=== PATIENT | female | born 1975 | race Caucasian/White ===

== ENCOUNTER 2020-11-07 21:01 | Emergency (ER) | payer OTHER, SELFPAY ==
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
[2020-11-07 21:12] VITALS: BP 137/79; PULSE 83; RESP 18; TEMP 37; O2SAT 99; BMI 31.1
[2020-11-07] MEDS: ONDANSETRON 4 MG ODT PREPACK 1 BOTTLE MISC (22:27)
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
== END 2020-11-07 22:27 | disposition home or self-care (01) ==
PROVIDERS: Emergency Provider Emergency Medicine; Family Provider Physician Assistant; PCP Physician Assistant
DX: S06.0X1A Concussion with loss of consciousness of 30 minutes or less, initial encounter (principal); M62.838 Other muscle spasm; R11.0 Nausea; Y04.2XXA Assault by strike against or bumped into by another person, initial encounter
CPT/HCPCS: 70450; 72125; 99283; 99284

== ENCOUNTER → 2024-04-10 16:41 | Outpatient (CLI) | payer OTHER, SELFPAY ==
--- NOTE | 2024-04-10 16:42 | DI.US.S_ITS ---
PROCEDURE: US PELVIC COMPLETE INDICATIONS: Heavy bleeding possible fibroids TECHNIQUE: Real-time scanning was performed of the pelvic organs, with image documentation. Additional endovaginal scanning was necessary due to incomplete visualization of the adnexal and endometrial structures by transabdominal scanning. COMPARISON: None. FINDINGS: Uterus: Uterus is anteverted and enlarged measuring 14.3 x 8.4 cm. The myometrium is heterogeneous secondary to several myometrial masses ranging in size from 2.8-3.1 cm. The endometrium measures 18.3 mm combined thickness. No increased myometrial or endometrial vascularity. Ovaries: The right ovary measures 3.8 x 3.9 x 2.2 cm, with a calculated ovarian volume of 16.5 cc. The left ovary measures 2.4 x 1.9 x 5.3 cm, with a calculated ovarian volume of 12.6 cc. The ovaries have a normal sonographic appearance. The left ovary is only seen by transabdominal imaging due to anterior position. Less than 12 follicles can be seen in each ovary. No adnexal masses are seen. Other: No pathologic free abdominal or pelvic fluid. IMPRESSION: Enlarged, heterogeneous, fibroid uterus. Endometrium at the upper limits of normal thickness. More detailed evaluation on fibroids and endometrium could be performed with gynecologic pelvic MRI if indicated. We strive to produce accurate, complete, and clear reports of imaging services. To assist us in improving patient care, this report was composed using standard report templates and voice recognition software. Therefore, it may contain abnormal punctuation, insertions and/or omissions. Occasional wrong-word or sound-alike substitutions may occur. Though we review the report and make efforts to correct it, we do recommend that the report be read carefully in proper context to recognize any text inaccuracies. Dictated by: Buffy Tillman M.D. on 04/10/2024 at 21:50 Approved by: Buffy Tillman M.D. on 04/10/2024 at 21:55
== END ==
PROVIDERS: Family Provider Physician Assistant; PCP Physician Assistant; Referring Provider Student in an Organized Health Care Education/Training Program; Visit Provider Student in an Organized Health Care Education/Training Program
DX: N94.6 Dysmenorrhea, unspecified (principal); N85.2 Hypertrophy of uterus; N85.9 Noninflammatory disorder of uterus, unspecified
CPT/HCPCS: 76856

== ENCOUNTER → 2024-05-25 14:57 | Outpatient (CLI) | payer OTHER, SELFPAY ==
[2024-05-25 15:10] LABS: Add Manual Diff / Slide Review NO; Basophils Absolute Auto 100 /uL (0-100); Basophils Percent Auto 0.9 % (0-2); Eosinophils Absolute Auto 400 /uL (0-450); Eosinophils Percent Auto 5.1 % (2-4); Hematocrit 42.4 % (36-46); Hemoglobin 14.4 g/dL (12.0-16.0); Lymphocytes Absolute Auto 2300 /uL (1100-4500); Mean Corpuscular HGB Conc 33.9 % (30-36); Mean Corpuscular Hemoglobin 28.9 PG (26-34); Mean Corpuscular Volume 85.1 fL (80-100); Monocytes Absolute Auto 900 /uL (0-900); Monocytes Percent Auto 10.6 % (3-14); Neutrophils Absolute Auto 5100 /uL (1500-7000); Neutrophils Percent Auto 57.4 % (50-75); Platelet Count 419 X10^3/uL (150-400); Red Blood Cell Count 4.99 X10^6/uL (4.0-5.2); Red Cell Distribution Width 19.6 % (11.6-14.8); White Blood Cell Count 8.8 X10^3/uL (4.5-11.0)
== END ==
PROVIDERS: Family Provider Physician Assistant; PCP Physician Assistant; Referring Provider Student in an Organized Health Care Education/Training Program; Visit Provider Student in an Organized Health Care Education/Training Program
DX: N92.0 Excessive and frequent menstruation with regular cycle (principal); N93.9 Abnormal uterine and vaginal bleeding, unspecified; D25.9 Leiomyoma of uterus, unspecified
CPT/HCPCS: 36415; 85025

== ENCOUNTER 2024-06-04 11:56 | Day surgery (SDC) | payer OTHER, SELFPAY ==
[2024-05-27 10:51] VITALS: BMI 32.4
[2024-06-04] VITALS (11 sets, daily range): BP systolic 117–169; BP diastolic 72–95; PULSE 64–74; RESP 14–20; TEMP 36.2–36.9; O2SAT 94–100; BMI 32.7; BMI 33.3
--- NOTE | 2024-06-04 | PATH_ITS ---
[facility] Accession Number: [id number] No. of containers..01 Tissue . 01 Material submitted: . uterus - UTERUS, CERVIX, BILATERAL FALLOPIAN TUBES . 01 Diagnosis: UTERUS, CERVIX, BILATERAL FALLOPIAN TUBES, HYSTERECTOMY AND BILATERAL SALPINGECTOMY: Uterus with secretory endometrium and leiomyomas (up to 2.4 cm). Histologically unremarakable cervix. Bilateral fimbriated fallopian tubes with benign paratubal cysts, otherwise unremarkable. MRV 06/08/2024 1351 Local . 01 Electronically signed: . Karolyn Montanez DO, Pathologist NPI- [id number] . 01 Gross description: . Received in formalin with two identifiers and uterus, cervix, bilateral fallopian tubes, is a fragmented uterus (428 grams, 15.2 x 11.7 x 7.9 cm in aggregate), with detached cervix (3.4 x 3.1 cm), and two detached, unoriented, fimbriated fallopian tubes (6.2 x 0.6 cm and 6.5 x 0.5 cm), with no additional adnexa. . The ectocervix is pink-restrepo and wrinkled with a patulous os 1.3 cm in diameter. The cervical margin is inked blue. The serosa is restrepo and smooth with no hemorrhage or adhesion identified. The segment of endocervical canal measures 3.5 cm length and has restrepo herringbone mucosa. The endometrium is violaceous and fragile and averages 0.3 cm thick. The myometrium is restrepo and diffusely trabecular with multiple well-circumscribed white whorled nodules ranging from 0.2 to 2.4 cm in greatest dimension with no hemorrhage or necrosis identified and are located intramurally. . Both tubes have violaceous, smooth serosa with cystic structures up to 0.8 cm in greatest dimension filled with cloudy serous fluid. The lumen are stellate and unremarkable. . Inspector Experimental Assembly sections are submitted as follows: A1-A2: Cervix. A3: Endometrium. A4-A5: Nodules. A6: Longer fallopian tube to include one-half of bisected fimbriae and cross-sections. A7: [place] fallopian tube to include one-half of bisected fimbriae and cross-sections. ([id number]) /TISHA 06/05/2024 2221 Local . 01 Pathologist provided ICD-10: D25.9 . 01 CPT . 235066 Specimen Comment: A courtesy copy of this report has been sent to [facility] Performed at: [address] [address], [place], [place] [id number] MD Amos Dunham MD Phone: [phone]
[2024-06-04] MEDS: ACETAMINOPHEN IV 1,000 MG/100 ML VIAL 400 MG IV (12:30)
[2024-06-04] MEDS: SCOPOLAMINE 1 PATCH TOP (12:30)
[2024-06-04] MEDS: LACTATED RINGERS 1,000 ML 42 ML IV (12:31)
--- NOTE | 2024-06-04 12:31 | PM.PREOP ---
Pre-operative Note Interval Note History & Physical reviewed/Exam performed by Physician: Yes Changes to H&P: No H&P completed within 30 days and has changed as indicated here:: see H&P from 05/25/24; discussed goal of total laparoscopic hysterectomy, with laparoscopic supracervical hysterectomy as next approach rather than MEG
[2024-06-04] MEDS: CEFAZOLIN 2 GM/100 ML PREMIX 100 ML IV (13:25)
--- NOTE | 2024-06-04 13:46 | SUR.OPER ---
Lithotomy on padded OR bed. Killdeer Pad Positioner under torso. Head on pillow, arms padded and tucked at sides. Legs secured in padded yellow fins stirrups.
[2024-06-04] MEDS: BUPIVACAINE 0.25% (PF) VIAL 30 ML INJ (14:19)
[2024-06-04] MEDS: LACTATED RINGERS 1,000 ML 21 ML IV (15:00)
--- NOTE | 2024-06-04 16:23 | P.OP_ITS ---
Operative Date/Time/Diagnoses Date of procedure: 06/04/24 Time of procedure: 13:30 Pre-op diagnosis: 1. Abnormal uterine bleeding 2. Uterine leiomyomata 3. Chronic blood loss iron-deficiency anemia Post-op diagnosis: same Procedure & Clinicians Procedure: Total laparoscopic hysterectomy Bilateral salpingectomy Cystoscopy Same procedure as scheduled: Yes Indications: 49yo F with AUB-L and anemia, desiring definitive management, thus she was counseled and consented for the above procedures. Surgeon: Nivia Cordoba Cellophane Casting Machine Repairer: Radha Rosenberg Click Yes if Unassisted: No Anesthesia Type: General Operative Notes Findings: Enlarged multi-fibroid uterus. Normal appearing bilateral fallopian tubes and bilateral ovaries. Normal appearing liver edge and gallbladder. Urinary bladder with small crystals noted, but otherwise normal appearing bladder mucosa with brisk efflux of urine from bilateral ureteral orifices. Specimen(s): other (uterus, cervix, bilateral fallopian tubes) Applied: catheter Estimated Blood Loss (mL): 350 Blood products transfused: none Procedure in detail: The risks, benefits, indications and alternatives of the procedure were reviewed with the patient and informed consent was obtained. The pt was taken to the operating room where general anesthesia was obtained without difficulty. The pt was then placed in the low lithotomy position using Fili Stirrups and arms were tucked with padding. Sequential compression devices were placed bilaterally for VTE prophylaxis. She was then prepped and draped in the sterile fashion and a Bear catheter was placed. She received 2g Ancef for surgical prophylaxis. A V-care uterine manipulator was placed through the cervix into the uterus for uterine manipulation. Attention was then turned to the patient?s abdomen were a 5mm skin incision was made in the inferior aspect of the umbilicus after injecting 0.25% Marcaine. A 5mm trocar and sleeve were then carefully introduced into the peritoneal cavity under direct visualization at a 90-degree angle while tenting up the abdominal wall. Intra-peritoneal placement was confirmed under direct visualization with the laparoscope with entry pressure <5 mmHg. A pneumoperitoneum was obtained with several liters of CO2 gas, maximum pressure of 15 mmHg. Upon entry into the peritoneal cavity, structures immediately below the incision were inspected and found to be free of injury. A survey of the patient's abdomen and pelvis was notable for the above findings. Three additional 5mm port sites, one in the right lateral side and two in the left lateral side, were placed under direct laparoscopic guidance. The Powerseal device was then used to separate the left fallopian tube from the mesosalpinx, then transected at the cornua and removed via a lateral port. The utero-ovarian and round ligaments were then clamped, cut, and ligated. The anterior broad ligament was then incised along the bladder reflection and the bladder was dissected off the lower uterine segment until endopelvic fascia was visualized. The uterine artery was then identified, skeletonized, and ligated on the left. The uterosacral ligament and cardinal ligament were transected on the left. Attention was then directed to the right side, where the same procedure was done to clamp, cut, and ligate the right fallopian tube and right side of the uterus. The anterior colpotomy was then made using the Bovie L-hook and continued circumferentially inferior to the cervix using the colpotomy ring as a guide. During this process, there was brisk bleeding from the right uterine artery and branches, which were ligated with the Powerseal. The entire cervix and uterus was then successfully amputated. Attention was then directed vaginally, where the uterus was morcellated in the vagina, with care to keep the morcellated specimens from entering or contacting the abdominal cavity. The uterus was then delivered through the vagina. The 0 Stratafix suture was then introduced into the abdominal cavity via the vagina. Attention was then re-directed back to the abdomen, where the vaginal cuff was then closed laparoscopically with the barbed suture in a running fashion. The suture needle was removed via the lateral port under direct visualization. The pelvis was then irrigated, and excellent hemostasis was noted after use of PerClot hemostatic powder on the pedicles and vaginal cuff. The pneumoperitoneum was then released. The bear catheter was then removed, and the cystoscope was then primed and advanced through the urethra and into the bladder. Both ureteral orifices were identified and bilateral efflux of urine was visualized. A survey of the bladder did not show defects or visible suture. The cystoscope was then removed and the bladder was drained. The bear catheter was replaced. Attention was then returned to the abdomen, where the remaining ports were removed. The skin incisions were then reapproximated using 4-0 monocryl suture in a subcuticular fashion and covered with Dermabond. At the completion of the case the sponge and needle counts were correct x 2, and all instruments were confirmed to be removed from the vagina. The patient was taken to the PACU in stable condition. Complications: none Post-operative Condition: stable Disposition: PACU Plan for aftercare: Plan for overnight stay with discharge home in the morning.
[2024-06-04] MEDS: OXYCODONE IR 5 MG TABLET PO ×3 (16:39→19:45)
[2024-06-04] MEDS: ONDANSETRON 4 MG/2 ML INJ IV (16:39)
[2024-06-04] MEDS: HYDROMORPHONE 1 MG INJ IV ×2 (16:39→20:50)
[2024-06-04] MEDS: ACETAMINOPHEN 325 MG TABLET 650 MG PO (17:37)
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
[2024-06-04] MEDS: DOCUSATE 100 MG CAPSULE 200 MG PO (20:07)
[2024-06-04] MEDS: KETOROLAC 30 MG/ML VIAL IV (22:24)
[2024-06-05] VITALS: BP 116/63; PULSE 84; RESP 18; TEMP 36.6; O2SAT 92
[2024-06-05] MEDS: ACETAMINOPHEN 325 MG TABLET 650 MG PO ×3 (00:25→10:58)
[2024-06-05] MEDS: OXYCODONE IR 5 MG TABLET PO ×3 (00:26→07:26)
[2024-06-05] MEDS: KETOROLAC 30 MG/ML VIAL IV ×2 (04:40→10:10)
[2024-06-05 08:00] VITALS: BP 112/59; PULSE 77; RESP 14; TEMP 37.1; O2SAT 94
[2024-06-05] MEDS: DULOXETINE 30 MG CAPSULE 60 MG PO (08:11)
[2024-06-05] MEDS: DOCUSATE 100 MG CAPSULE 200 MG PO (08:11)
[2024-06-05] MEDS: hydroCHLOROthiazide 25 MG TABLET 12.5 MG PO (08:11)
[2024-06-05] MEDS: OXYCODONE IR 5 MG TABLET 10 MG PO (10:59)
--- NOTE | 2024-06-05 11:08 | PC.NURSE ---
Patients bear was taken out this am. Patient just voided around 125cc of yellow urine in the toilet, she is ok to discharge home now. Oxycodone 10mg and tylenol given to patient. Her is here to take her home. 4 lapsite incisions all cdi with durmobond. IV being taken out now.
== END 2024-06-05 11:43 | disposition home or self-care (01) ==
LOC: OR 11:58 → AC 12:04
PROVIDERS: Family Provider Physician Assistant; PCP Physician Assistant; Referring Provider Student in an Organized Health Care Education/Training Program; Visit Provider Student in an Organized Health Care Education/Training Program
PROC: 0UT94ZZ Resection of Uterus, Percutaneous Endoscopic Approach (ICD-10-PCS; CPT 58573; principal; 2024-06-04 13:15)
DX: N93.9 Abnormal uterine and vaginal bleeding, unspecified (principal); D50.8 Other iron deficiency anemias; D25.9 Leiomyoma of uterus, unspecified; N83.8 Other noninflammatory disorders of ovary, fallopian tube and broad ligament
CPT/HCPCS: 58573; 58571; J0131; J0690; J1100; J1171; J1885; J2250; J2405; J2704; J3010

== ENCOUNTER 2024-06-15 22:39 | Emergency (ER) | payer OTHER, SELFPAY ==
[2024-06-04 18:40] VITALS: BMI 32.7
[2024-06-15 22:46] VITALS: BP 135/66; PULSE 82; RESP 20; TEMP 36.8; O2SAT 98; BMI 32.0
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
[2024-06-15 23:46] LABS: Alanine Aminotransferase 75 IU/L (<35); Albumin 4.5 g/dL (3.5-5.0); Albumin Globulin Ratio 1.4 (1.0-2.8); Alkaline Phosphatase 188 U/L (38-126); Aspartate Aminotransferase 64 IU/L (14-36); BUN Creatinine Ratio 23.1 (6-22); Bilirubin Total 0.4 mg/dL (0.2-1.3); Blood Urea Nitrogen 15 mg/dL (7-17); Calcium 9.6 mg/dL (8.4-10.2); Carbon Dioxide 23 mmol/L (22-32); Chloride 106 mmol/L (98-107); Estimated Glomerular Filt Rate > 60 mL/min (>60); Globulin 3.3 g/dL (1.7-4.1); Glucose 101 mg/dL (70-100); HEMOLYSIS 27 (0-50); Lipase 176 U/L (23-300); Potassium 3.8 mmol/L (3.4-5.1); Sodium 138 mmol/L (137-145); Total Protein 7.8 g/dL (6.3-8.2)
[2024-06-15 23:52] LABS: Add Manual Diff / Slide Review NO; Basophils Absolute Auto 200 /uL (0-100); Basophils Percent Auto 1.3 % (0-2); Eosinophils Absolute Auto 700 /uL (0-450); Eosinophils Percent Auto 5.3 % (2-4); Hematocrit 41.3 % (36-46); Hemoglobin 14.3 g/dL (12.0-16.0); Lymphocytes Absolute Auto 3100 /uL (1100-4500); Lymphocytes Percent Auto 22.5 % (25-40); Mean Corpuscular HGB Conc 34.6 % (30-36); Mean Corpuscular Hemoglobin 29.9 PG (26-34); Mean Corpuscular Volume 86.5 fL (80-100); Monocytes Absolute Auto 1100 /uL (0-900); Monocytes Percent Auto 7.7 % (3-14); Neutrophils Absolute Auto 8700 /uL (1500-7000); Neutrophils Percent Auto 63.2 % (50-75); Platelet Count 525 X10^3/uL (150-400); Red Blood Cell Count 4.77 X10^6/uL (4.0-5.2); Red Cell Distribution Width 17.8 % (11.6-14.8); White Blood Cell Count 13.8 X10^3/uL (4.5-11.0)
[2024-06-16 01:18] VITALS: BP 137/93; PULSE 93; RESP 16; O2SAT 100
== END 2024-06-16 04:34 | disposition left against medical advice (07) ==
PROVIDERS: Emergency Provider Emergency Medicine; Family Provider Physician Assistant; PCP Physician Assistant
DX: Z98.890 Other specified postprocedural states (principal); R10.2 Pelvic and perineal pain; Z90.710 Acquired absence of both cervix and uterus; Y04.2XXA Assault by strike against or bumped into by another person, initial encounter
CPT/HCPCS: 36415; 74177; 80053; 83690; 85025; 99283; Q9967